=== PATIENT | female | born 1955 | race American Indian/Alaskan Native ===

== ENCOUNTER 2017-07-02 17:28 | Inpatient (IN) | payer OTHER ==
[2017-07-02 19:20] LABS: Hematocrit 39.1 % (30.3-42.9); Hemoglobin 12.6 gm/dl (10.1-14.3); Mean Corpuscular HGB Conc 32 % (30-34); Mean Corpuscular Hemoglobin 28 pg (28-32); Mean Corpuscular Volume 87 fl (79-97); Platelet Count 295 K/mm3 (140-440); Red Cell Distribution Width 13.9 % (13.2-15.2); White Blood Count 8.5 K/mm3 (4.5-11.0)
[2017-07-02 19:24] LABS: BUN/Creatinine Ratio 8.57; Calcium 9.1 mg/dL (8.4-10.2); Chloride 96.6 mmol/L (98-107); Potassium 3.2 mmol/L (3.6-5.0)
[2017-07-02] MEDS ORDERED: ATIVAN IV ONE (20:30)
[2017-07-02] MEDS ORDERED: NACL 0.9% 500 ML 500 ML IV ONE (20:30)
--- NOTE | 2017-07-02 20:32 | Emergency Department Report ---
ED General Adult HPI - General Chief complaint: Weakness Stated complaint: SICKLE CELL Time Seen by Provider: 07/02/17 20:13 Source: patient, family, EMS (ems notes not available at time of chart dictation), RN notes reviewed Mode of arrival: Stretcher Limitations: Other (patient very anxious, patient is a poor historian) - History of Present Illness Initial comments: This is a 62-year-old female. She is previously unknown to me. Past medical history includes diabetes, hypertension, anxiety. The patient is quite anxious , and has difficulty giving a cogent history. As per patient, she passed out prior to arrival. Prior to passing out, patient denied sudden severe thunderclap headache, neck pain. Afterwards, she can wait of chest pain, right medial leg pain, weakness, dizziness, generalized weakness. The chest pain as central, it does not radiate to the back, arms or neck. Patient denies vomiting , denies diaphoresis. As per triage nurse documentation, the patient was hypotensive, patient started gabapentin today. The patient cannot describe exacerbating or relieving factors. -: Gradual Location: back, right, lower extremity Radiation: extremity (right lower cavity pain radiates distally, patient and family endorse a history of radicular pain) Consistency: intermittent Improves with: none Worsens with: none Associated Symptoms: chest pain, headaches, loss of appetite, malaise, syncope, weakness - Related Data Home Medications Medication Instructions Recorded Confirmed Last Taken Benazepril/Hydrochlorothiazide 1 tab PO QAM 07/02/17 07/02/17 Unknown [Benazepril-Hctz 20-25 mg] Furosemide [Lasix TAB] 80 mg PO QAM 07/02/17 07/02/17 Unknown Gabapentin [Neurontin] 600 mg PO TID 07/02/17 07/02/17 Unknown Metoprolol [Lopressor TAB] 25 mg PO BID 07/02/17 07/02/17 Unknown Potassium Chloride [Klor-Con 10] 20 meq PO QDAY 07/02/17 07/02/17 Unknown Rosuvastatin Calcium [Rosuvastatin 20 mg PO QHS 07/02/17 07/02/17 Unknown Calcium] Sodium Bicarbonate [Sodium 650 mg PO QDAY 07/02/17 07/02/17 Unknown Bicarbonate] Allergies Allergy/AdvReac Type Severity Reaction Status Date / Time No Known Allergies Allergy Verified 07/02/17 23:57 ED Review of Systems ROS: Stated complaint: SICKLE CELL Other details as noted in HPI Constitutional: malaise, weakness Eyes: denies: vision change ENT: denies: epistaxis Respiratory: see HPI Cardiovascular: chest pain, syncope Gastrointestinal: denies: abdominal pain Genitourinary: denies: dysuria Musculoskeletal: back pain, arthralgia, myalgia Skin: denies: lesions Neurological: headache, weakness, confusion Psychiatric: anxiety ED Past Medical Hx - Past Medical History Previous Medical History?: Yes Hx Hypertension: Yes Hx Diabetes: Yes - Social History Smoking Status: Never Smoker Substance Use Type: None - Medications Home Medications: Home Medications Medication Instructions Recorded Confirmed Last Taken Type Benazepril/Hydrochlorothiazide 1 tab PO QAM 07/02/17 07/02/17 Unknown History [Benazepril-Hctz 20-25 mg] Furosemide [Lasix TAB] 80 mg PO QAM 07/02/17 07/02/17 Unknown History Gabapentin [Neurontin] 600 mg PO TID 07/02/17 07/02/17 Unknown History Metoprolol [Lopressor TAB] 25 mg PO BID 07/02/17 07/02/17 Unknown History Potassium Chloride [Klor-Con 10] 20 meq PO QDAY 07/02/17 07/02/17 Unknown History Rosuvastatin Calcium [Rosuvastatin 20 mg PO QHS 07/02/17 07/02/17 Unknown History Calcium] Sodium Bicarbonate [Sodium 650 mg PO QDAY 07/02/17 07/02/17 Unknown History Bicarbonate] ED Physical Exam - General Limitations: Other (patient is very anxious.) General appearance: alert, anxious, obese - Head Head exam: Present: atraumatic, normocephalic - Eye Eye exam: Present: normal appearance, PERRL, EOMI. Absent: nystagmus - ENT ENT exam: Present: normal exam, normal orophraynx, mucous membranes moist, normal external ear exam - Neck Neck exam: Present: normal inspection, full ROM. Absent: tenderness, meningismus - Respiratory Respiratory exam: Present: normal lung sounds bilaterally. Absent: respiratory distress, wheezes, rales, rhonchi, stridor, chest wall tenderness, accessory muscle use, decreased breath sounds, prolonged expiratory - Cardiovascular Cardiovascular Exam: Present: regular rate, normal rhythm, normal heart sounds. Absent: bradycardia, tachycardia, irregular rhythm, systolic murmur, diastolic murmur, rubs, gallop - GI/Abdominal GI/Abdominal exam: Present: soft, normal bowel sounds. Absent: distended, tenderness, guarding, rebound, rigid, pulsatile mass - Extremities Exam Extremities exam: Present: normal inspection, full ROM, normal capillary refill , other (the right medial thigh is nontender, without evidence of erythema, pus streaking, or crepitus. During this exam, I am escorted by nurse Almita Muir) . Absent: pedal edema, joint swelling, calf tenderness - Back Exam Back exam: Present: normal inspection, full ROM. Absent: tenderness, CVA tenderness (R), CVA tenderness (L), muscle spasm, paraspinal tenderness - Neurological Exam Neurological exam: Present: alert (patient is alert to name, location, and month.), other (there is no facial droop. The tongue is midline. Extraocular movements are intact bilaterally. Facial sensation is intact to light touch in the bilateral V1, V2, V3 distribution. The patient has 5 out of 5 strength in the bilateral upper extremities, and she is able to lift the bilateral lower extremities against gravity. Sensation is intact to light touch in 4 extremities) - Psychiatric Psychiatric exam: Present: anxious - Skin Skin exam: Present: warm, dry, intact, normal color. Absent: rash ED Course Vital Signs 07/02/17 07/02/17 07/02/17 17:29 17:30 17:45 Pulse Rate 65 65 66 Respiratory 18 15 19 Rate Blood Pressure 134/71 127/72 Blood Pressure [Right] O2 Sat by Pulse 99 98 100 Oximetry 07/02/17 07/02/17 07/02/17 18:01 18:15 18:30 Pulse Rate 68 67 66 Respiratory 15 15 13 Rate Blood Pressure 127/72 128/75 129/72 Blood Pressure [Right] O2 Sat by Pulse 98 100 100 Oximetry 07/02/17 07/02/17 07/02/17 18:45 19:01 19:15 Pulse Rate 68 66 69 Respiratory 16 20 24 Rate Blood Pressure 129/72 137/107 137/107 Blood Pressure [Right] O2 Sat by Pulse 100 98 99 Oximetry 07/02/17 07/02/17 07/02/17 19:31 19:45 20:01 Pulse Rate 68 Respiratory 14 21 14 Rate Blood Pressure 137/107 137/107 187/131 Blood Pressure [Right] O2 Sat by Pulse 99 97 99 Oximetry 07/02/17 07/02/17 07/02/17 20:15 20:31 20:45 Pulse Rate 70 Respiratory 13 18 13 Rate Blood Pressure 187/131 187/131 157/100 Blood Pressure [Right] O2 Sat by Pulse 99 94 Oximetry 07/02/17 07/02/17 07/02/17 21:00 21:40 21:45 Pulse Rate 68 67 67 Respiratory 18 12 14 Rate Blood Pressure 152/95 146/92 143/87 Blood Pressure [Right] O2 Sat by Pulse 96 96 96 Oximetry 07/02/17 07/02/17 07/02/17 22:00 22:15 22:31 Pulse Rate 66 Respiratory 14 Rate Blood Pressure 151/84 149/81 146/79 Blood Pressure [Right] O2 Sat by Pulse 97 96 99 Oximetry 07/02/17 07/02/17 07/02/17 22:45 22:57 23:00 Pulse Rate 63 71 71 Respiratory 20 14 12 Rate Blood Pressure 136/69 136/69 145/70 Blood Pressure [Right] O2 Sat by Pulse 94 98 98 Oximetry 07/02/17 07/02/17 07/03/17 23:03 23:30 00:00 Pulse Rate 78 71 69 Respiratory 11 L 13 Rate Blood Pressure 157/99 158/93 Blood Pressure [Right] O2 Sat by Pulse 97 97 Oximetry 07/03/17 07/03/17 00:31 01:15 Pulse Rate 79 69 Respiratory 20 18 Rate Blood Pressure 167/102 Blood Pressure 158/93 [Right] O2 Sat by Pulse 92 97 Oximetry - EJ/Peripheral Line Neck R Time Out Performed: Yes Indications: multiple IV sites needed Skin Cleansed in Sterile Fashion: Yes Size: 18 Dressing Placed: Tegaderm Patient Tolerated Procedure: well ED Medical Decision Making - Lab Data Result diagrams: 07/02/17 18:46 07/02/17 18:46 Vital Signs 07/02/17 07/02/17 07/02/17 17:29 17:30 17:45 Pulse Rate 65 65 66 Respiratory 18 15 19 Rate Blood Pressure 134/71 127/72 O2 Sat by Pulse 99 98 100 Oximetry 07/02/17 07/02/17 07/02/17 18:01 18:15 18:30 Pulse Rate 68 67 66 Respiratory 15 15 13 Rate Blood Pressure 127/72 128/75 129/72 O2 Sat by Pulse 98 100 100 Oximetry 07/02/17 07/02/17 07/02/17 18:45 19:01 19:15 Pulse Rate 68 66 69 Respiratory 16 20 24 Rate Blood Pressure 129/72 137/107 137/107 O2 Sat by Pulse 100 98 99 Oximetry 07/02/17 07/02/17 07/02/17 19:31 19:45 20:01 Pulse Rate 68 Respiratory 14 21 14 Rate Blood Pressure 137/107 137/107 187/131 O2 Sat by Pulse 99 97 99 Oximetry 07/02/17 07/02/17 07/02/17 20:15 20:31 20:45 Pulse Rate 70 Respiratory 13 18 13 Rate Blood Pressure 187/131 187/131 157/100 O2 Sat by Pulse 99 94 Oximetry 07/02/17 07/02/17 07/02/17 21:00 21:40 21:45 Pulse Rate 68 67 67 Respiratory 18 12 14 Rate Blood Pressure 152/95 146/92 143/87 O2 Sat by Pulse 96 96 96 Oximetry 07/02/17 07/02/17 07/02/17 22:00 22:15 22:31 Pulse Rate 66 Respiratory 14 Rate Blood Pressure 151/84 149/81 146/79 O2 Sat by Pulse 97 96 99 Oximetry 07/02/17 07/02/17 22:45 23:03 Pulse Rate 63 78 Respiratory 20 Rate Blood Pressure 136/69 O2 Sat by Pulse 94 Oximetry Labs 07/02/17 07/02/17 07/02/17 18:46 18:46 21:49 WBC 8.5 RBC 4.50 Hgb 12.6 Hct 39.1 MCV 87 MCH 28 MCHC 32 RDW 13.9 Plt Count 295 PT 13.6 INR 0.99 APTT 21.3 L D-Dimer 170.59 Sodium 141 Potassium 3.2 L Chloride 96.6 L Carbon Dioxide 26 Anion Gap 22 BUN 12 Creatinine 1.4 H Estimated GFR 46 BUN/Creatinine Ratio 8.57 Glucose 140 H Calcium 9.1 Magnesium Total Creatine Kinase Troponin T 07/02/17 21:49 WBC RBC Hgb Hct MCV MCH MCHC RDW Plt Count PT INR APTT D-Dimer Sodium Potassium Chloride Carbon Dioxide Anion Gap BUN Creatinine Estimated GFR BUN/Creatinine Ratio Glucose Calcium Magnesium 1.70 Total Creatine Kinase 42 Troponin T < 0.010 - EKG Data -: EKG Interpreted by Me - EKG Data 07/02/17 23:17 EKG #1 demonstrates normal sinus, 65 bpm, first-degree AV block, left axis deviation, left anterior fascicular block, poor R wave progression, abnormal EKG , there is no prior for comparison. EKG #2 was unchanged. Not morphologically consistent with sytemi - Radiology Data Radiology results: report reviewed, image reviewed Noncontrast CT scan of the brain is negative. Noncontrast CT scan of the cervical spine is negative. Chest x-ray is negative. - Medical Decision Making Differential diagnosis: Arrhythmia, structural cardiac disease, transient ischemic attack, seizure, pulmonary revenue cycle analyst, anxiety, conversion disorder, orthostasis, dehydration, medication side effect Assessment and plan: 62-year-old female with syncope, resolved hypotension, chest pain, abnormal EKG. Moderate risk by heart score, not suitable for outpatient acute coronary syndrome or stratification, troponins negative, d- dimer negative, low risk by well's criteria, noncontrast CT scan of the brain is negative, has chronic radiculopathy, patient given Ativan for anxiety. The case is presented to the Hospital physician, Dr. Singleton, she accepts the patient to her service. Critical care attestation.: If time is entered above; I have spent that time in minutes in the direct care of this critically ill patient, excluding procedure time. ED Disposition Clinical Impression: Syncope, Renal insufficiency, Chest pain Disposition: OP ADMIT IP TO THIS HOSP Is pt being admited?: Yes Does the pt Need Aspirin: Yes Condition: Good
--- NOTE | 2017-07-02 22:08 | Cat Scan Report ---
FINAL REPORT EXAM: CT HEAD/BRAIN WO CON HISTORY: syncope weakness TECHNIQUE: CT head without contrast PRIORS: None. FINDINGS: No acute intra-axial or extra-axial hemorrhage is identified. There is no evidence of midline shift or mass effect. The ventricles and sulci are within normal limits. Kennedy-white matter differentiation is intact. No acute parenchymal abnormalities seen. There are patchy and confluent hypodensities within the supratentorial white matter. Bony calvarium is grossly intact. Visualized portions of the mastoids and paranasal sinuses are unremarkable. IMPRESSION: Chronic small vessel white matter ischemic change
--- NOTE | 2017-07-02 22:23 | Cat Scan Report ---
FINAL REPORT EXAM: CT CERVICAL SPINE WO CON HISTORY: syncope weakness TECHNIQUE: CT cervical spine with reconstructions PRIORS: None. FINDINGS: Vertebral bodies demonstrate normal height and alignment. The disk spaces are within normal limits. The facet joints demonstrate normal alignment. The spinous processes are intact. Craniocervical junction is unremarkable. C1 and C2 are intact. IMPRESSION: Negative CT cervical spine. No acute abnormality seen.
[2017-07-02 22:27] LABS: INR 0.99 (0.87-1.13); Partial Thromboplastin Time 21.3 Sec. (24.2-36.6)
[2017-07-02 22:33] LABS: Creatine Kinase 42 units/L (30-135)
[2017-07-02] MEDS ORDERED: BABY ASPIRIN PO ONE (23:24)
--- NOTE | 2017-07-02 23:55 | History and Physical Report ---
History of Present Illness Date of examination: 07/02/17 History of present illness: 62-year-old woman history of hypertension, diabetes comes emergency room complaining of syncopal episode after getting out of her car. This lasted for less than a minute. Also complaining of chest pain in the epigastric area which she described as a pulling sensation, intermittent every minute, intensity 4 / 10, no radiation, she cannot identify exacerbating or relieving factors. She admits to nausea vomiting, no shortness of breath diaphoresis or palpitation but did admit to feeling dizzy Review Of Systems: Constitutional: no fever, chills, weight loss Ears, eyes, nose, mouth and throat: no nasal congestion, no nasal discharge, no sinus pressure, blurry vision, diplopia Neck: No neck pain or rigidity. Cardiovascular: chest pain, orthopnea, palpitations Respiratory: No shortness of breath, cough Gastrointestinal: abdominal pain, hematochezia Genitourinary : no dysuria, frequency , hematuria Musculoskeletal: no joint swelling or muscle ache Integumentary: no rash, no pruritis Neurological: no parathesias, focal weakness Endocrine: no cold or heat intolerance, no polyuria or polydipsia Hematologic/Lymphatic: no easy bruising, no easy bleeding, no gland swelling Allergic/Immunologic: no urticaria, no angioedema. PAST MEDICAL HISTORY:hypertension, diabetes PAST SURGICAL HISTORY: None FAMILY HISTORY: Hypertension SOCIAL HISTORY: Denies alcohol, tobacco, drugs Medications and Allergies Allergies Allergy/AdvReac Type Severity Reaction Status Date / Time No Known Allergies Allergy Verified 07/02/17 23:57 Home Medications Medication Instructions Recorded Confirmed Last Taken Type ALPRAZolam [Xanax TAB] 0.25 mg PO BID PRN #30 tab 07/04/17 Unknown Rx Furosemide [Lasix TAB] 40 mg PO QAM #30 tablet 07/04/17 Unknown Rx Gabapentin [Neurontin] 600 mg PO TID #30 tablet 07/04/17 Unknown Rx Lisinopril [Zestril TAB] 20 mg PO QDAY #30 tablet 07/04/17 Unknown Rx Metoprolol [Lopressor TAB] 25 mg PO BID #60 tablet 07/04/17 Unknown Rx Potassium Chloride [Klor-Con 10] 20 meq PO QDAY #30 tablet.er 07/04/17 Unknown Rx Rosuvastatin Calcium 20 mg PO QHS #30 tablet 07/04/17 Unknown Rx Exam - Physical Exam Narrative exam: Gen. appearance: Patient lying in bed, no apparent distress HEENT: Normocephalic, atraumatic, pupils equally round and reactive to light, extraocular movement intact, and no sclericterus,. No JVD or thyromegaly or nodule,neck supple, no carotid bruit ,mucous membranes moist, no exudate or erythema Heart: S1, S2, regular rate and rhythm Lungs: Clear to auscultation bilaterally, breathing comfortable Abdomen: Positive bowel sounds, nontender, nondistended, no organomegaly Extremity: No edema, cyanosis, clubbing Skin: No rash, nodules, warm, dry Neuro: Oriented 3, cranial nerves II-12 intact, speech is fluent, motor and sensory intact - Constitutional Vitals: Temp Pulse Resp BP Pulse Ox 78 20 136/69 94 07/02/17 23:03 07/02/17 22:45 07/02/17 22:45 07/02/17 22:45 Results - Labs CBC & Chem 7: 07/04/17 04:48 07/04/17 04:48 Labs: Abnormal lab results 07/02/17 07/02/17 Range/Units 18:46 21:49 APTT 21.3 L (24.2-36.6) Sec. Potassium 3.2 L (3.6-5.0) mmol/L Chloride 96.6 L (98-107) mmol/L Creatinine 1.4 H (0.7-1.2) mg/dL Glucose 140 H (65-100) mg/dL - Imaging and Cardiology EKG: image reviewed Chest x-ray: image reviewed CT Scan - head: report reviewed Assessment and Plan CT cervical spine reviewed Assessment Syncopal episode Chest pain Hypertension Diabetes Plan Admit to medicine Check cardiac enzymes, stress tests Check fingersticks and initiate insulin sliding scale Start aspirin, DVT prophylaxis Continue appropriate outpatient medication
[2017-07-03] MEDS ORDERED: MILK OF MAGNESIA PO PRN (00:39)
[2017-07-03] MEDS ORDERED: DULCOLAX PR PRN (00:39)
[2017-07-03] MEDS ORDERED: TYLENOL PO PRN (00:39)
[2017-07-03] MEDS ORDERED: ZOFRAN IV PRN (00:39)
[2017-07-03] MEDS ORDERED: D50W (25GM) Syringe IV PRN (01:07)
[2017-07-03] MEDS ORDERED: BABY ASPIRIN ONE (01:10)
[2017-07-03 01:46] LABS: Creatine Kinase 48 units/L (30-135)
[2017-07-03 01:52] LABS: Creatine Kinase MB < 1.0 ng/mL (0.0-4.0)
[2017-07-03] MEDS: PERCOCET 5/325 PO PRN ×5 (02:52→21:40)
[2017-07-03 06:38] LABS: Creatine Kinase MB < 1.0 ng/mL (0.0-4.0)
[2017-07-03 06:50] LABS: Creatine Kinase 46 units/L (30-135)
--- NOTE | 2017-07-03 07:41 | XRay Report ---
AP CHEST: HISTORY: chest pain AP view of the chest demonstrates a normal mediastinal and cardiac contour with clear lungs and normal bony and soft tissue structures. IMPRESSION: Unremarkable AP chest.
[2017-07-03] MEDS: NOVOLOG SUB-Q SCH ×4 (08:35→22:00)
[2017-07-03] MEDS ORDERED: APRESOLINE IV PRN (08:57)
[2017-07-03] MEDS: HCTZ PO SCH (09:26)
[2017-07-03] MEDS: LOVENOX SUB-Q SCH (09:26)
[2017-07-03] MEDS: ZESTRIL PO SCH (09:28)
[2017-07-03] MEDS ORDERED: LOVENOX SUB-Q SCH (10:00)
[2017-07-03] MEDS ORDERED: LEXISCAN IV ONE ×2 (11:06→11:08)
[2017-07-03] MEDS ORDERED: Fluarix Quad 2017-2018(36 MOS+) IM ONE (12:00)
[2017-07-03] MEDS ORDERED: PNEUMOVAX 23 IM ONE (12:00)
--- NOTE | 2017-07-03 14:46 | Progress Note ---
Assessment and Plan Assessment and plan: 62-year-old woman history of hypertension, diabetes comes emergency room complaining of syncopal episode after getting out of her car. This lasted for less than a minute. Also complaining of chest pain in the epigastric area which she described as a pulling sensation, intermittent every minute, intensity 4 / 10, no radiation, she cannot identify exacerbating or relieving factors. She admits to nausea vomiting, no shortness of breath diaphoresis or palpitation but did admit to feeling dizzy. she also has a mirade of problems, from nasuea with vomiting, non specific sick feeling to emotional outburst for no known reason and ?depression, leg pain and hand sensation abnormality Syncopal episode likely vasovagal * Continue supportive care. Atypical Chest pain possible GERD * Stress test negative. Echo pending. start on PPI Depression * Psych eval PER Pt request Hypertension * Controlled continue home meds Thigh pain. * Check d.dimer, if elevated will obtain U/S to r/o dvt Diabetes Mellitus uncontrolled with Neuropathy * Adjust insulin therapy, monitor accucheck AC/HS DVT/GI prophy Plan of care discussed with the patient in detail. Anticipate discharge in AM. History Interval history: Patient seen and examined. reports feeling sad and often crying into the middle of the night without any known reason to her. also reports "feeling sick" with episode of vomiting, no bloody, prior to passing out and also sensation of left thigh pain going on for 2 months, and sensation of neuropathy in both hands. Hospitalist Physical - Physical exam Narrative exam: Gen. appearance: Patient lying in bed, no apparent distress HEENT: Normocephalic, atraumatic, pupils equally round and reactive to light, extraocular movement intact, and no sclericterus,. No JVD or thyromegaly or nodule,neck supple, no carotid bruit ,mucous membranes moist, no exudate or erythema Heart: S1, S2, regular rate and rhythm Lungs: Clear to auscultation bilaterally, breathing comfortable Abdomen: Positive bowel sounds, nontender, nondistended, no organomegaly Extremity: No edema, cyanosis, clubbing Skin: No rash, nodules, warm, dry Neuro: Oriented 3, cranial nerves II-12 intact, speech is fluent, motor and sensory intact - Constitutional Vitals: Temp Pulse Resp BP Pulse Ox 97.8 F 85 18 162/84 97 07/03/17 06:30 07/03/17 11:33 07/03/17 13:29 07/03/17 11:33 07/03/17 07:56 Results - Labs CBC & Chem 7: 07/02/17 18:46 08 18:46 Labs: Laboratory Last Values WBC 8.5 K/mm3 (4.5-11.0) 07/02/17 18:46 RBC 4.50 M/mm3 (3.65-5.03) 07/02/17 18:46 Hgb 12.6 gm/dl (10.1-14.3) 07/02/17 18:46 Hct 39.1 % (30.3-42.9) 07/02/17 18:46 MCV 87 fl (79-97) 07/02/17 18:46 MCH 28 pg (28-32) 07/02/17 18:46 MCHC 32 % (30-34) 07/02/17 18:46 RDW 13.9 % (13.2-15.2) 07/02/17 18:46 Plt Count 295 K/mm3 (140-440) 07/02/17 18:46 PT 13.6 Sec. (12.2-14.9) 07/02/17 21:49 INR 0.99 (0.87-1.13) 07/02/17 21:49 APTT 21.3 Sec. (24.2-36.6) L 07/02/17 21:49 D-Dimer 170.59 ng/mlDDU (0-234) 07/02/17 21:49 Sodium 141 mmol/L (137-145) 07/02/17 18:46 Potassium 3.2 mmol/L (3.6-5.0) L 07/02/17 18:46 Chloride 96.6 mmol/L (98-107) L 07/02/17 18:46 Carbon Dioxide 26 mmol/L (22-30) 07/02/17 18:46 Anion Gap 22 mmol/L 07/02/17 18:46 BUN 12 mg/dL (7-17) 07/02/17 18:46 Creatinine 1.4 mg/dL (0.7-1.2) H 07/02/17 18:46 Estimated GFR 46 ml/min 07/02/17 18:46 BUN/Creatinine Ratio 8.57 % 07/02/17 18:46 Glucose 140 mg/dL (65-100) H 07/02/17 18:46 Calcium 9.1 mg/dL (8.4-10.2) 07/02/17 18:46 Magnesium 1.70 mg/dL (1.7-2.3) 07/02/17 21:49 Total Creatine Kinase 46 units/L (30-135) 07/03/17 05:55 CK-MB (CK-2) < 1.0 ng/mL (0.0-4.0) 07/03/17 05:55 CK-MB (CK-2) Rel Index 2.1 (0-4) 07/03/17 05:55 Troponin T < 0.010 ng/mL (0.00-0.029) 07/03/17 05:55 - Imaging and Cardiology Chest x-ray: image reviewed (negative) CT Scan - head: image reviewed (chronic white matter ischemic changes)
[2017-07-03] MEDS ORDERED: XANAX PO PRN (19:43)
[2017-07-03] MEDS ORDERED: ROXICODONE PO ONE (20:00)
[2017-07-03] MEDS: NEURONTIN PO SCH (21:39)
[2017-07-03] MEDS: LOPRESSOR PO SCH (21:39)
[2017-07-03] MEDS: ZOFRAN IV PRN (23:20)
--- NOTE | 2017-07-04 01:05 | Treadmill Report ---
MYOCARDIAL PERFUSION IMAGING STUDIES Resting myocardial perfusion images revealed homogeneous radioisotope uptake. There was also some gastric uptake. On post-Lexiscan images, again there was homogeneous radioisotope distribution throughout the myocardium. There is no transient ischemic dilatation. Gated scan revealed no motion abnormality. Ejection fraction was 67%. IMPRESSION: 1. This test is negative for ischemia. 2. Good left ventricular systolic function with ejection fraction of 67%. JOB# [id number]
[2017-07-04] MEDS: PERCOCET 5/325 PO PRN ×3 (05:22→17:22)
[2017-07-04] MEDS: NEURONTIN PO SCH ×2 (05:22→17:17)
[2017-07-04 06:33] LABS: Basophils % (Auto) 0.5 % (0.0-1.8); Hematocrit 34.8 % (30.3-42.9); Hemoglobin 11.4 gm/dl (10.1-14.3); Mean Corpuscular HGB Conc 33 % (30-34); Mean Corpuscular Hemoglobin 28 pg (28-32); Mean Corpuscular Volume 86 fl (79-97); Platelet Count 293 K/mm3 (140-440); Red Blood Count 4.04 M/mm3 (3.65-5.03); White Blood Count 6.1 K/mm3 (4.5-11.0)
[2017-07-04 06:51] LABS: BUN/Creatinine Ratio 9.33; Calcium 8.3 mg/dL (8.4-10.2)
[2017-07-04 06:52] LABS: Chloride 98.2 mmol/L (98-107); Potassium 3.4 mmol/L (3.6-5.0)
--- NOTE | 2017-07-04 08:43 | Discharge Summary ---
Providers - Providers Date of Admission: 07/02/17 23:55 Attending physician: JUSTO COMER MD 07/03/17 18:14 Consult to Mental Health [CONS] Routine Reason For Exam: depression Place consult to:: mental health Notified:: NABEEL Phone number called:: [phone] Was contact made?: Yes Time called:: 08:26 Primary care physician: HADOOP ARCHITECT Hospitalization Reason for admission: SYNCOPE Condition: Stable Hospital course: 62-year-old woman history of hypertension, diabetes comes emergency room complaining of syncopal episode after getting out of her car. This lasted for less than a minute. Also complaining of chest pain in the epigastric area which she described as a pulling sensation, intermittent every minute, intensity 4 / 10, no radiation, she cannot identify exacerbating or relieving factors. She admits to nausea vomiting, no shortness of breath diaphoresis or palpitation but did admit to feeling dizzy. she also has a mirade of problems, from [place] with vomiting, non specific sick feeling to emotional outburst for no known reason and ?depression, leg pain and hand sensation abnormality Syncopal episode likely vasovagal * NO EVIDENCE OF AORTIC STENOSIS ON ECHO Atypical Chest pain possible GERD * Stress test negative. * D-dimer is negative Depression * OUTPATIENT PSYCH EVAL Hypertension * Controlled continue home meds Thigh pain. * supportive care. follow with [facility] she is [facility] with Diabetes Mellitus uncontrolled with Neuropathy * Better controlled recommended to continue with gabapentin. Monitor blood glucose level, yearly Eye and podiatry exams. Diastolic Heart failure on Echo: * Educated on findings. No clinical symptoms at this time, Recommended close follow up with PCP Disposition: DC-01 TO HOME OR SELFCARE Time spent for discharge: 35 MINS Core Measure Documentation - Palliative Care Palliative Care/ Comfort Measures: Not Applicable - Core Measures Any of the following diagnoses?: none - VTE Discharge Requirements Deep Vein Thrombosis/Pulmonary Embolism Present on Admission: No - Heart Failure Discharge Requirements RAVINDER/ARB for LVSD if EF <40%: Yes Beta remington at discharge: Yes Exam - Physical Exam Narrative exam: Gen. appearance: Patient lying in bed, no apparent distress HEENT: Normocephalic, atraumatic, pupils equally round and reactive to light, extraocular movement intact, and no sclericterus,. No JVD or thyromegaly or nodule,neck supple, no carotid bruit ,mucous membranes moist, no exudate or erythema Heart: S1, S2, regular rate and rhythm Lungs: Clear to auscultation bilaterally, breathing comfortable Abdomen: Positive bowel sounds, nontender, nondistended, no organomegaly Extremity: No edema, cyanosis, clubbing Skin: No rash, nodules, warm, dry Neuro: Oriented 3, cranial nerves II-12 intact, speech is fluent, motor and sensory intact - Constitutional Vitals: Temp Pulse Resp BP Pulse Ox 98.0 F 67 20 108/59 100 07/04/17 04:42 07/04/17 04:42 07/04/17 06:22 07/04/17 04:42 07/04/17 00:08 Plan Activity: advance as tolerated, fall precautions Diet: low fat, low salt, diabetic Special Instructions: record daily BP diary, record blood sugar diary Follow up with: PRIMARY CARE, [Primary Care Provider] - 3-5 Days LOLA MARION MD [Staff Physician] - 7 Days Prescriptions: Rosuvastatin Calcium 20 mg PO QHS #30 tablet ALPRAZolam [Xanax TAB] 0.25 mg PO BID PRN #30 tab PRN Reason: Anxiety Furosemide [Lasix TAB] 40 mg PO QAM #30 tablet Gabapentin [Neurontin] 600 mg PO TID #30 tablet Lisinopril [Zestril TAB] 20 mg PO QDAY #30 tablet Metoprolol [Lopressor TAB] 25 mg PO BID #60 tablet Potassium Chloride [Klor-Con 10] 20 meq PO QDAY #30 tablet.er
[2017-07-04] MEDS: LOVENOX SUB-Q SCH (09:47)
[2017-07-04] MEDS: HCTZ PO SCH (09:47)
[2017-07-04] MEDS: LOPRESSOR PO SCH (09:47)
[2017-07-04] MEDS: NOVOLOG SUB-Q SCH ×3 (09:47→16:30)
[2017-07-04] MEDS: ZESTRIL PO SCH (09:48)
[2017-07-04] MEDS: ZOFRAN IV PRN (09:59)
--- NOTE | 2017-07-04 16:02 | Consultation ---
History of Present Illness - Reason for Consult Consult date: 07/04/17 Reason for consult: Mental Health Evaluation Requesting physician: JUSTO COMER - Chief Complaint Chief complaint: "I feel worthless sometimes" - History of Present Psychiatric Illness 62 y.o. BF presenting to [facility] for for syncopal episodes. Psychiatry was consulted to see patient for possible depression. Today patient is cooperative, but emotional during the assessment. She stated being very emotional lately along with feeling sorry for herself because she cannot get around like she used to in the past. She stated having issues with her legs and experiencing falls lately. Also, the patient is from her spouse. She stated these stressors has caused her to feel sad, hopeless, and helpless the past 3 months. She stated that she has a daughter who can help her out around her house. She stated that she did not want to bother her daughter, because she has her own life to manage. She denies SI/HI's and AVH's. She rate her depression 6/10, with 10 being the worse. She denies a sleep disturbances and a poor appetite. She denies recreational drug use and alcohol consumption (etoh). Patient is willing to seek therapy once discharged from the hospital. Medications and Allergies Allergies Allergy/AdvReac Type Severity Reaction Status Date / Time No Known Allergies Allergy Verified 07/02/17 23:57 Home Medications Medication Instructions Recorded Confirmed Last Taken Type ALPRAZolam [Xanax TAB] 0.25 mg PO BID PRN #30 tab 07/04/17 Unknown Rx Furosemide [Lasix TAB] 40 mg PO QAM #30 tablet 07/04/17 Unknown Rx Gabapentin [Neurontin] 600 mg PO TID #30 tablet 07/04/17 Unknown Rx Lisinopril [Zestril TAB] 20 mg PO QDAY #30 tablet 07/04/17 Unknown Rx Metoprolol [Lopressor TAB] 25 mg PO BID #60 tablet 07/04/17 Unknown Rx Potassium Chloride [Klor-Con 10] 20 meq PO QDAY #30 tablet.er 07/04/17 Unknown Rx Rosuvastatin Calcium 20 mg PO QHS #30 tablet 07/04/17 Unknown Rx Active Meds: Active Medications Acetaminophen (Tylenol) 650 mg PO Q4H PRN PRN Reason: Pain MILD(1-3)/Fever >100.5/MAGAÑA Alprazolam (Xanax) 1 mg PO Q8H PRN PRN Reason: Anxiety Last Admin: 07/03/17 21:39 Dose: 1 mg Bisacodyl (Dulcolax) 10 mg NV QDAY PRN PRN Reason: Constipation unrelieved by MOM Dextrose (D50w (25gm)) 50 ml IV PRN PRN PRN Reason: Hypoglycemia Enoxaparin Sodium (Lovenox) 40 mg SUB-Q QDAY@1000 [facility] Last Admin: 07/04/17 09:47 Dose: 40 mg Gabapentin (Neurontin) 600 mg PO Q8HR [facility] Last Admin: 07/04/17 05:22 Dose: 600 mg Hydralazine HCl (Apresoline) 10 mg IV Q6H PRN PRN Reason: Blood Pressure Last Admin: 07/03/17 16:16 Dose: 10 mg Hydrochlorothiazide (Hctz) 25 mg PO QDAY [facility] Last Admin: 07/04/17 09:47 Dose: Not Given Insulin Aspart (Novolog) 0 units SUB-Q ACHS [facility] PRN Reason: Protocol Last Admin: 07/04/17 13:09 Dose: Not Given Lisinopril (Zestril) 20 mg PO QDAY [facility] Last Admin: 07/04/17 09:48 Dose: Not Given Magnesium Hydroxide (Milk Of Magnesia) 30 ml PO Q4H PRN PRN Reason: Constipation Metoprolol Tartrate (Lopressor) 25 mg PO BID [facility] Last Admin: 07/04/17 09:47 Dose: Not Given Ondansetron HCl (Zofran) 4 mg IV Q4H PRN PRN Reason: N/V unrelieved by Reglan Last Admin: 07/04/17 09:59 Dose: 4 mg Oxycodone/Acetaminophen (Percocet 5/325) 1 tab PO Q4H PRN PRN Reason: Pain, Moderate (4-6) Last Admin: 07/04/17 09:59 Dose: 1 tab Past psychiatric history - Past Medical History Past Medical History: diabetes, hypertension Past Surgical History: No surgical history - past Psychiatric treatment and history psychiatric treatment history: Denies a psy hx. Denies a fam psy hx. - Social History Social history: Lives alone Mental Status Exam - Vital signs Last Vital Signs Temp 98.0 F 07/04/17 04:42 Pulse 90 07/04/17 10:00 Resp 20 07/04/17 10:59 BP 108/60 07/04/17 09:48 Pulse Ox 99 07/04/17 10:00 - Exam Narrative exam: ROS: (+) depression MSE: Appearance: cooperative, emotional Behavior: regular eye contact Speech: regular rate and tone Mood: "okay now" Affect: congruent to mood Thought Process: linear Thought Content: denies SI/HI's and AVH's Motor Activity: ambulatory Cognition: A/Ox 3 Insight: fair Judgment: fair Results Result Diagrams: 07/04/17 04:48 07/04/17 04:48 Abnormal lab results 07/03/17 07/03/17 07/03/17 Range/Units 07:56 16:36 21:30 [place] % (Auto) (0.0-7.3) % Potassium (3.6-5.0) mmol/L Creatinine (0.7-1.2) mg/dL Glucose (65-100) mg/dL POC Glucose 166 H 305 H 281 H (70-105) Calcium (8.4-10.2) mg/dL 07/04/17 07/04/17 07/04/17 Range/Units 04:48 04:48 08:53 [place] % (Auto) 10.5 H (0.0-7.3) % Potassium 3.4 L (3.6-5.0) mmol/L Creatinine 1.5 H (0.7-1.2) mg/dL Glucose 243 H (65-100) mg/dL POC Glucose 303 H (70-105) Calcium 8.3 L (8.4-10.2) mg/dL 07/04/17 Range/Units 11:28 [place] % (Auto) (0.0-7.3) % Potassium (3.6-5.0) mmol/L Creatinine (0.7-1.2) mg/dL Glucose (65-100) mg/dL POC Glucose 308 H (70-105) Calcium (8.4-10.2) mg/dL All other labs normal. Assessment and Plan Assessment and plan: Impression: MDD moderate type. Today patient is cooperative, but emotional during the assessment. Patient denies SI's. DDx: R/O Bipolar Recommendation/Plan: Start Prozac 20 mg PO Daily for depression. Patient can follow-up outpatient psy services at [facility]. Discussed possible suicidality/medication induced jesus with patient reference Gigi. Patient is willing to requested assistance from her daughter when indicated.
[2017-07-04 17:56] VITALS: BP 146/80
[2017-07-04] MEDS ORDERED: PROzac PO SCH (18:00)
== END 2017-07-04 17:50 | disposition home or self-care (01) | DRG 312 ==
LOC: ED 17:28 → 4A 23:55
PROVIDERS: ADMIT Internal Medicine; ATTEND Internal Medicine
PROC: 3E0234Z Introduction of Serum, Toxoid and Vaccine into Muscle, Percutaneous Approach (ICD-10-PCS; principal; 2017-07-03)
DX: R55 Syncope and collapse (principal); I50.30 Unspecified diastolic (congestive) heart failure; K21.9 Gastro-esophageal reflux disease without esophagitis; E11.9 Type 2 diabetes mellitus without complications; F41.9 Anxiety disorder, unspecified; N28.9 Disorder of kidney and ureter, unspecified; F32.9 Major depressive disorder, single episode, unspecified; M79.659 Pain in unspecified thigh; E11.40 Type 2 diabetes mellitus with diabetic neuropathy, unspecified; I11.0 Hypertensive heart disease with heart failure; Z79.899 Other long term (current) drug therapy; Z23 Encounter for immunization
CPT/HCPCS: 36415; 70450; 71010; 72125; 78452; 80048; 82550; 82553; 82962; 83735; 84484; 85025; 85027; 85379; 85610; 85730; 90686; 90732; 93005; 93010; 93017; 93306; 96374; A9502; J0360; J1650; J1815; J2060; J2405; J2785; J7040

== ENCOUNTER 2017-10-19 08:26 | Emergency (ER) | payer SELFPAY ==
[2017-10-19 09:13] LABS: Hematocrit 37.1 % (30.3-42.9); Hemoglobin 12.3 gm/dl (10.1-14.3); Mean Corpuscular HGB Conc 33 % (30-34); Mean Corpuscular Hemoglobin 28 pg (28-32); Mean Corpuscular Volume 85 fl (79-97); Platelet Count 268 K/mm3 (140-440); Red Blood Count 4.36 M/mm3 (3.65-5.03); Red Cell Distribution Width 14.7 % (13.2-15.2); White Blood Count 4.9 K/mm3 (4.5-11.0)
[2017-10-19 09:23] LABS: INR 0.95 (0.87-1.13)
[2017-10-19 09:40] LABS: Partial Thromboplastin Time 26.8 Sec. (24.2-36.6)
[2017-10-19 09:47] LABS: Creatine Kinase MB 1.2 ng/mL (0.0-4.0)
[2017-10-19 09:49] LABS: Alanine Aminotransferase 8 units/L (7-56); Albumin 3.8 g/dL (3.9-5); Alkaline Phosphatase 65 units/L (35-129); Anion Gap 21 mmol/L; BUN/Creatinine Ratio 14; Bilirubin,Direct < 0.2 mg/dL (0-0.2); Blood Urea Nitrogen 11 mg/dL (7-17); Calcium 9.3 mg/dL (8.4-10.2); Carbon Dioxide 23 mmol/L (22-30); Chloride 98.8 mmol/L (98-107); Glucose 309 mg/dL (65-100); Potassium 3.6 mmol/L (3.6-5.0); Sodium 139 mmol/L (137-145); Total Protein 7.8 g/dL (6.3-8.2)
[2017-10-19 10:26] LABS: Basophils % (Manual) 0 % (0.0-1.8); Blastocytes % (Manual) 0 %
[2017-10-19 10:27] LABS: Diff Status Complete; Platelet Estimate Consistent w Auto; RBC Morphology Normal
[2017-10-19] MEDS ORDERED: CATAPRES PO ONE (10:30)
[2017-10-19] MEDS ORDERED: TORADOL IV ONE (10:40)
[2017-10-19] MEDS ORDERED: ZOFRAN IV ONE ×2 (10:40→14:04)
[2017-10-19] MEDS ORDERED: DILAUDID IV ONE ×2 (10:40→13:03)
--- NOTE | 2017-10-19 11:42 | XRay Report ---
RIGHT HIP, 2 views: History: Right hip pain. There is normal bone mineralization. Mild osteoarthritic changes are identified at the right hip. No evidence for fracture, dislocation or osteonecrosis. IMPRESSION: Mild osteoarthritis.
--- NOTE | 2017-10-19 11:49 | Emergency Department Report ---
ED Lower Extremity HPI - General Chief Complaint: Pain General Stated Complaint: PAIN ON RIGHT SIDE OF BODY Time Seen by Provider: 10/19/17 10:26 Source: patient, old records reviewed Mode of arrival: Wheelchair Limitations: Physical Limitation - History of Present Illness Initial Comments: 62-year-old female with a history of arthritis, hypertension, diabetes currently on insulin, and diabetic neuropathy presents complaining of right hip pain 1 year worsening for the last 2 days. Patient states she has history of significant arthritis to bilateral knees with [id number] contact. Patient also states she has had right hip pain 1 year but does not know the cause. Pain radiates to thigh. Pain is constant, aching with intermittent sharp component and severe in intensity. She states she is seen at the [facility] and they only prescribed gabapentin for her neuropathy pain. Patient states she needs something stronger to control her pain to her hip. Patient complaining of intermittent and midsternal chest pain that occurs when she tenses her body up during significant hip pain episodes. Pain is described as a pressure. Patient has had some mild nausea and vomited times one secondary to significant pain and mild shortness of breath reported. Last fall was 2 months ago and patient denies any more recent injury, fever, leg weakness, or urinary symptoms. Pt presents with elevated bp and sugar and states she has been compliant with her meds but did not take her meds this am. Previous medical record review. Patient was here July 02 until the for syncope. No evidence of aortic stenosis, atypical chest pain with GERD reported with a negative stress test and negative d-dimer. It is noted at that time patient complained of right thigh pain and has a diagnosis of neuropathy. Positive diastolic heart failure with echo. - Related Data Previous Rx's Medication Instructions Recorded Last Taken Type ALPRAZolam [Xanax TAB] 0.25 mg PO BID PRN #30 tab 07/04/17 Unknown Rx Furosemide [Lasix TAB] 40 mg PO QAM #30 tablet 07/04/17 Unknown Rx Gabapentin [Neurontin] 600 mg PO TID #30 tablet 07/04/17 Unknown Rx Lisinopril [Zestril TAB] 20 mg PO QDAY #30 tablet 07/04/17 Unknown Rx Metoprolol [Lopressor TAB] 25 mg PO BID #60 tablet 07/04/17 Unknown Rx Potassium Chloride [Klor-Con 10] 20 meq PO QDAY #30 tablet.er 07/04/17 Unknown Rx Rosuvastatin Calcium 20 mg PO QHS #30 tablet 07/04/17 Unknown Rx HYDROcodone/APAP 5-325 [[place] 1 each PO Q4HR PRN #20 tablet 10/19/17 Unknown Rx 5/325] Ibuprofen [Motrin] 800 mg PO Q8HR PRN #30 tablet 10/19/17 Unknown Rx Allergies Allergy/AdvReac Type Severity Reaction Status Date / Time No Known Allergies Allergy Verified 07/02/17 23:57 ED Review of Systems ROS: Stated complaint: PAIN ON RIGHT SIDE OF BODY Other details as noted in HPI Comment: All other systems reviewed and negative Other: Constitutional: No fevers chills Eyes: No eye pain visual changes ENT: No ear pain or throat pain Neck: Denies pain Respiratory: Denies cough wheezing shortness of breath Cardiovascular: Denies chest pain, palpitations, syncope GI: Denies abdominal pain, nausea, vomiting, diarrhea : urinary frequency Musculoskeletal: As per HPI Skin: Denies rash, lesions, erythema Neurologic: Denies headache, numbness, weakness Psychiatric: Denies suicidal ideation, hallucinations ED Past Medical Hx - Past Medical History Previous Medical History?: Yes Hx Hypertension: Yes Hx Diabetes: Yes Hx Arthritis: Yes - Surgical History Past Surgical History?: Yes Hx Appendectomy: Yes Additional Surgical History: Hernia around intestines - Social History Smoking Status: Never Smoker Substance Use Type: Prescribed - Medications Home Medications: Home Medications Medication Instructions Recorded Confirmed Last Taken Type ALPRAZolam [Xanax TAB] 0.25 mg PO BID PRN #30 tab 07/04/17 Unknown Rx Furosemide [Lasix TAB] 40 mg PO QAM #30 tablet 07/04/17 Unknown Rx Gabapentin [Neurontin] 600 mg PO TID #30 tablet 07/04/17 Unknown Rx Lisinopril [Zestril TAB] 20 mg PO QDAY #30 tablet 07/04/17 Unknown Rx Metoprolol [Lopressor TAB] 25 mg PO BID #60 tablet 07/04/17 Unknown Rx Potassium Chloride [Klor-Con 10] 20 meq PO QDAY #30 tablet.er 07/04/17 Unknown Rx Rosuvastatin Calcium 20 mg PO QHS #30 tablet 07/04/17 Unknown Rx HYDROcodone/APAP 5-325 [[place] 1 each PO Q4HR PRN #20 tablet 10/19/17 Unknown Rx 5/325] Ibuprofen [Motrin] 800 mg PO Q8HR PRN #30 tablet 10/19/17 Unknown Rx ED Physical Exam - General Limitations: Physical Limitation - Other Other exam information: General: No limitations, patient is alert in no acute distress Head exam: Atraumatic, normocephalic Eyes exam: Normal appearance ENT: Moist mucous membrane, normal oropharynx Neck exam: Normal inspection, full range of motion, no meningismus nontender Respiratory exam: Clear to auscultation bilateral, no wheezes, rales, crackles Cardiovascular: Normal rate and rhythm, normal heart sounds Abdomen: Soft, nondistended, and nontender, with normal bowel sounds, no rebound, or guarding Extremity: Full range of motion normal inspection no deformity. Mild tenderness to right hip, tenderness to thigh with palpation. Pain with movement of right hip. No pain to palpation to the knees but pain with movement. 2+ DP pulses equal bilaterally or erythema, warmth, or edema. no calf tenderness Back: Normal Inspection, full range of motion, no tenderness Neurologic: Alert, oriented x3, cranial nerves intact, no motor or sensory deficit Psychiatric: normal affect, normal mood Skin: Warm, dry, intact ED Course Vital Signs 10/19/17 10/19/17 10/19/17 08:36 09:26 09:28 Temperature 98.3 F 97.9 F Pulse Rate 94 H 86 85 Respiratory 20 12 16 Rate Blood Pressure 213/122 Blood Pressure 227/130 [Left] O2 Sat by Pulse 99 99 100 Oximetry 10/19/17 10/19/17 10/19/17 09:30 09:46 10:00 Temperature Pulse Rate 86 95 H Respiratory 15 18 Rate Blood Pressure 227/136 222/124 227/159 Blood Pressure [Left] O2 Sat by Pulse 99 100 100 Oximetry 10/19/17 10/19/17 10/19/17 10:30 11:12 11:30 Temperature Pulse Rate 87 87 87 Respiratory 14 13 11 L Rate Blood Pressure 217/126 217/126 217/126 Blood Pressure [Left] O2 Sat by Pulse 100 Oximetry 10/19/17 10/19/17 10/19/17 11:46 12:00 12:16 Temperature Pulse Rate 86 88 80 Respiratory 11 L 17 10 L Rate Blood Pressure 217/126 217/126 217/126 Blood Pressure [Left] O2 Sat by Pulse Oximetry 10/19/17 10/19/17 10/19/17 12:30 12:46 13:00 Temperature Pulse Rate 82 81 84 Respiratory 10 L 18 17 Rate Blood Pressure 217/126 217/126 217/126 Blood Pressure [Left] O2 Sat by Pulse Oximetry 10/19/17 10/19/17 13:16 13:30 Temperature Pulse Rate 82 83 Respiratory 10 L 15 Rate Blood Pressure 217/126 144/84 Blood Pressure [Left] O2 Sat by Pulse 87 Oximetry - Reevaluation(s) Reevaluation #1: 10/19/17 15:31 During ED stay patient received insulin, pain medication and nausea medication with improvement in symptoms. Clonidine 0.2 mg also given with improvement and reduction of blood pressure. ED Lower Extremity MDM - Lab Data Result diagrams: 10/19/17 09:00 10/19/17 09:00 Lab Results 10/19/17 10/19/17 10/19/17 Range/Units 09:00 09:00 09:00 WBC 4.9 (4.5-11.0) K/mm3 RBC 4.36 (3.65-5.03) M/mm3 Hgb 12.3 (10.1-14.3) gm/dl Hct 37.1 (30.3-42.9) % MCV 85 (79-97) fl MCH 28 (28-32) pg MCHC 33 (30-34) % RDW 14.7 (13.2-15.2) % Plt Count 268 (140-440) K/mm3 Add Manual Diff Complete Total Counted 100 Seg Neuts % (Manual) 42.0 (40.0-70.0) % Band Neutrophils % 0 % Lymphocytes % (Manual) 48.0 H (13.4-35.0) % Reactive Lymphs % (Man) 0 % Monocytes % (Manual) 8.0 H (0.0-7.3) % Eosinophils % (Manual) 2.0 (0.0-4.3) % Basophils % (Manual) 0 (0.0-1.8) % Metamyelocytes % 0 % Myelocytes % 0 % Promyelocytes % 0 % Blast Cells % 0 % Nucleated RBC % Not Reportable Seg Neutrophils # Man 2.1 (1.8-7.7) K/mm3 Band Neutrophils # 0.0 K/mm3 Lymphocytes # (Manual) 2.4 (1.2-5.4) K/mm3 Abs React Lymphs (Man) 0.0 K/mm3 Monocytes # (Manual) 0.4 (0.0-0.8) K/mm3 Eosinophils # (Manual) 0.1 (0.0-0.4) K/mm3 Basophils # (Manual) 0.0 (0.0-0.1) K/mm3 Metamyelocytes # 0.0 K/mm3 Myelocytes # 0.0 K/mm3 Promyelocytes # 0.0 K/mm3 Blast Cells # 0.0 K/mm3 WBC Morphology Not Reportable Hypersegmented Neuts Not Reportable Hyposegmented Neuts Not Reportable Hypogranular Neuts Not Reportable Smudge Cells Not Reportable Toxic Granulation Not Reportable Toxic Vacuolation Not Reportable Dohle Bodies Not Reportable Pelger-Huet Anomaly Not Reportable Grace Rods Not Reportable Platelet Estimate Consistent w auto Clumped Platelets Not Reportable Plt Clumps, EDTA Not Reportable Large Platelets Not Reportable Giant Platelets Not Reportable Platelet Satelliting Not Reportable Plt Morphology Comment Not Reportable RBC Morphology Normal Dimorphic RBCs Not Reportable Polychromasia Not Reportable Hypochromasia Not Reportable Poikilocytosis Not Reportable Anisocytosis Not Reportable Microcytosis Not Reportable Macrocytosis Not Reportable Spherocytes Not Reportable Pappenheimer Bodies Not Reportable Sickle Cells Not Reportable Target Cells Not Reportable Tear Drop Cells Not Reportable Ovalocytes Not Reportable Helmet Cells Not Reportable [place]ri[place]-Pastura Bodies Not Reportable Heaters Rings Not Reportable [place] Cells Not Reportable Bite Cells Not Reportable Crenated Cell Not Reportable Elliptocytes Not Reportable Acanthocytes (Spur) Not Reportable Rouleaux Not Reportable Hemoglobin C Crystals Not Reportable Schistocytes Not Reportable Malaria parasites Not Reportable Keo Bodies Not Reportable Hem Pathologist Commnt No PT 13.1 (12.2-14.9) Sec. INR 0.95 (0.87-1.13) APTT 26.8 (24.2-36.6) Sec. Sodium 139 (137-145) mmol/L Potassium 3.6 (3.6-5.0) mmol/L Chloride 98.8 (98-107) mmol/L Carbon Dioxide 23 (22-30) mmol/L Anion Gap 21 mmol/L BUN 11 (7-17) mg/dL Creatinine 0.8 (0.7-1.2) mg/dL Estimated GFR > 60 ml/min BUN/Creatinine Ratio 14 % Glucose 309 H (65-100) mg/dL POC Glucose (70-105) Calcium 9.3 (8.4-10.2) mg/dL Total Bilirubin 0.50 (0.1-1.2) mg/dL Direct Bilirubin < 0.2 (0-0.2) mg/dL AST 9 (5-40) units/L ALT 8 (7-56) units/L Alkaline Phosphatase 65 (35-129) units/L Total Creatine Kinase (30-135) units/L CK-MB (CK-2) (0.0-4.0) ng/mL CK-MB (CK-2) Rel Index (0-4) Troponin T < 0.010 (0.00-0.029) ng/mL NT-Pro-B Natriuret Pep (0-900) pg/mL Total Protein 7.8 (6.3-8.2) g/dL Albumin 3.8 L (3.9-5) g/dL Albumin/Globulin Ratio 1.0 % 10/19/17 10/19/17 10/19/17 Range/Units 09:00 09:00 10:27 WBC (4.5-11.0) K/mm3 RBC (3.65-5.03) M/mm3 Hgb (10.1-14.3) gm/dl Hct (30.3-42.9) % MCV (79-97) fl MCH (28-32) pg MCHC (30-34) % RDW (13.2-15.2) % Plt Count (140-440) K/mm3 Add Manual Diff Total Counted Seg Neuts % (Manual) (40.0-70.0) % Band Neutrophils % % Lymphocytes % (Manual) (13.4-35.0) % Reactive Lymphs % (Man) % Monocytes % (Manual) (0.0-7.3) % Eosinophils % (Manual) (0.0-4.3) % Basophils % (Manual) (0.0-1.8) % Metamyelocytes % % Myelocytes % % Promyelocytes % % Blast Cells % % Nucleated RBC % Seg Neutrophils # Man (1.8-7.7) K/mm3 Band Neutrophils # K/mm3 Lymphocytes # (Manual) (1.2-5.4) K/mm3 Abs React Lymphs (Man) K/mm3 Monocytes # (Manual) (0.0-0.8) K/mm3 Eosinophils # (Manual) (0.0-0.4) K/mm3 Basophils # (Manual) (0.0-0.1) K/mm3 Metamyelocytes # K/mm3 Myelocytes # K/mm3 Promyelocytes # K/mm3 Blast Cells # K/mm3 WBC Morphology Hypersegmented Neuts Hyposegmented Neuts Hypogranular Neuts Smudge Cells Toxic Granulation Toxic Vacuolation Dohle Bodies Pelger-Huet Anomaly Grace Rods Platelet Estimate Clumped Platelets Plt Clumps, EDTA Large Platelets Giant Platelets Platelet Satelliting Plt Morphology Comment RBC Morphology Dimorphic RBCs Polychromasia Hypochromasia Poikilocytosis Anisocytosis Microcytosis Macrocytosis Spherocytes Pappenheimer Bodies Sickle Cells Target Cells Tear Drop Cells Ovalocytes Helmet Cells Arrieta-Pastura Bodies Heaters Rings Wen Cells Bite Cells Crenated Cell Elliptocytes Acanthocytes (Spur) Rouleaux Hemoglobin C Crystals Schistocytes Malaria parasites Keo Bodies Hem Pathologist Commnt PT (12.2-14.9) Sec. INR (0.87-1.13) APTT (24.2-36.6) Sec. Sodium (137-145) mmol/L Potassium (3.6-5.0) mmol/L Chloride (98-107) mmol/L Carbon Dioxide (22-30) mmol/L Anion Gap mmol/L BUN (7-17) mg/dL Creatinine (0.7-1.2) mg/dL Estimated GFR ml/min BUN/Creatinine Ratio % Glucose (65-100) mg/dL POC Glucose 333 H (70-105) Calcium (8.4-10.2) mg/dL Total Bilirubin (0.1-1.2) mg/dL Direct Bilirubin (0-0.2) mg/dL AST (5-40) units/L ALT (7-56) units/L Alkaline Phosphatase (35-129) units/L Total Creatine Kinase 57 (30-135) units/L CK-MB (CK-2) 1.2 (0.0-4.0) ng/mL CK-MB (CK-2) Rel Index 2.1 (0-4) Troponin T (0.00-0.029) ng/mL NT-Pro-B Natriuret Pep 231.0 (0-900) pg/mL Total Protein (6.3-8.2) g/dL Albumin (3.9-5) g/dL Albumin/Globulin Ratio % 10/19/17 Range/Units 13:42 WBC (4.5-11.0) K/mm3 RBC (3.65-5.03) M/mm3 Hgb (10.1-14.3) gm/dl Hct (30.3-42.9) % MCV (79-97) fl MCH (28-32) pg MCHC (30-34) % RDW (13.2-15.2) % Plt Count (140-440) K/mm3 Add Manual Diff Total Counted Seg Neuts % (Manual) (40.0-70.0) % Band Neutrophils % % Lymphocytes % (Manual) (13.4-35.0) % Reactive Lymphs % (Man) % Monocytes % (Manual) (0.0-7.3) % Eosinophils % (Manual) (0.0-4.3) % Basophils % (Manual) (0.0-1.8) % Metamyelocytes % % Myelocytes % % Promyelocytes % % Blast Cells % % Nucleated RBC % Seg Neutrophils # Man (1.8-7.7) K/mm3 Band Neutrophils # K/mm3 Lymphocytes # (Manual) (1.2-5.4) K/mm3 Abs React Lymphs (Man) K/mm3 Monocytes # (Manual) (0.0-0.8) K/mm3 Eosinophils # (Manual) (0.0-0.4) K/mm3 Basophils # (Manual) (0.0-0.1) K/mm3 Metamyelocytes # K/mm3 Myelocytes # K/mm3 Promyelocytes # K/mm3 Blast Cells # K/mm3 WBC Morphology Hypersegmented Neuts Hyposegmented Neuts Hypogranular Neuts Smudge Cells Toxic Granulation Toxic Vacuolation Dohle Bodies Pelger-Huet Anomaly Grace Rods Platelet Estimate Clumped Platelets Plt Clumps, EDTA Large Platelets Giant Platelets Platelet Satelliting Plt Morphology Comment RBC Morphology Dimorphic RBCs Polychromasia Hypochromasia Poikilocytosis Anisocytosis Microcytosis Macrocytosis Spherocytes Pappenheimer Bodies Sickle Cells Target Cells Tear Drop Cells Ovalocytes Helmet Cells Arrieta-Pastura Bodies Heaters Rings [place] Cells Bite Cells Crenated Cell Elliptocytes Acanthocytes (Spur) Rouleaux Hemoglobin C Crystals Schistocytes Malaria parasites Keo Bodies Hem Pathologist Commnt PT (12.2-14.9) Sec. INR (0.87-1.13) APTT (24.2-36.6) Sec. Sodium (137-145) mmol/L Potassium (3.6-5.0) mmol/L Chloride (98-107) mmol/L Carbon Dioxide (22-30) mmol/L Anion Gap mmol/L BUN (7-17) mg/dL Creatinine (0.7-1.2) mg/dL Estimated GFR ml/min BUN/Creatinine Ratio % Glucose (65-100) mg/dL POC Glucose 255 H (70-105) Calcium (8.4-10.2) mg/dL Total Bilirubin (0.1-1.2) mg/dL Direct Bilirubin (0-0.2) mg/dL AST (5-40) units/L ALT (7-56) units/L Alkaline Phosphatase (35-129) units/L Total Creatine Kinase (30-135) units/L CK-MB (CK-2) (0.0-4.0) ng/mL CK-MB (CK-2) Rel Index (0-4) Troponin T (0.00-0.029) ng/mL NT-Pro-B Natriuret Pep (0-900) pg/mL Total Protein (6.3-8.2) g/dL Albumin (3.9-5) g/dL Albumin/Globulin Ratio % - Radiology Data Radiology results: report reviewed Right hip x-ray: Mild osteoarthritis - Medical Decision Making Plan to discharge patient home with pain medication and for acutely worsening chronic hip pain. X-ray significant for arthritis. BP and sugar elevation likely related to not taking her medication dose this morning and improved with treatment. No signs of hypertensive emergency or DKA at this time. Patient will be discharged home on symptomatic - Differential Diagnosis fracture, contusion, sprain, infection, hypertensive emergency Critical Care Time: No Critical care attestation.: If time is entered above; I have spent that time in minutes in the direct care of this critically ill patient, excluding procedure time. ED Disposition Clinical Impression: Arthritis of right hip, Diabetes, HTN (hypertension) Disposition: TO HOME OR SELFCARE Is pt being admited?: No Does the pt Need Aspirin: No Condition: Stable Instructions: Diabetes Mellitus Type 2 in Adults (ED), Hypertension (ED), Osteoarthritis (ED) Additional Instructions: Take the medication as prescribed. Return if symptoms worsen. Follow-up with your doctor and orthopedic doctor provided Prescriptions: HYDROcodone/APAP 5-325 [[place] 5/325] 1 each PO Q4HR PRN #20 tablet PRN Reason: Pain Ibuprofen [Motrin] 800 mg PO Q8HR PRN #30 tablet PRN Reason: Pain Referrals: PRIMARY CARE, [Primary Care Provider] - 3-5 Days GADIEL RUTHERFORD MD [Staff Physician] - 3-5 Days (Orthopedic doctor) Time of Disposition: 15:40
[2017-10-19 13:41] VITALS: BP 144/84
[2017-10-19] MEDS ORDERED: ZOFRAN ONE (14:06)
== END 2017-10-19 16:15 | disposition home or self-care (01) ==
LOC: ED 08:26
DX: I10 Essential (primary) hypertension (principal); M16.11 Unilateral primary osteoarthritis, right hip; E11.9 Type 2 diabetes mellitus without complications
CPT/HCPCS: 36415; 71010; 73502; 80048; 80074; 82550; 82553; 82962; 83880; 84484; 85007; 85025; 85610; 85730; 93005; 93010; 96374; 96375; 96376; 99284; J1170; J1885; J2405; J1815

== ENCOUNTER 2020-04-01 14:10 | Emergency (ER) | payer MEDICARE ==
[2020-04-01] MEDS ORDERED: SODIUM CHLORIDE 0.9% 1000 ML 1,000 ML IV ONE ×2 (14:45→16:37)
[2020-04-01] MEDS ORDERED: KETOROLAC 30 MG/1 ML INJ IV ONE (14:45)
--- NOTE | 2020-04-01 14:45 | Emergency Department Report ---
ED General Adult HPI - General Chief complaint: Weakness Stated complaint: WEAKNESS Time Seen by Provider: 04/01/20 14:38 Source: patient, EMS Mode of arrival: Stretcher Limitations: No Limitations - History of Present Illness Initial comments: Patient is a 65-year-old F [place] female who is presenting with generalized weakness. Patient states she is been so fatigued that she is having difficulty standing today. Patient feels very tired as well. Patient states that symptoms started approximately 2 to 3 days ago with several episodes of diarrhea. This is now resolved patient does have a mild cough productive of clear sputum. States she has some reproducible left chest discomfort. States that her right hip which she has chronic pain has been bothering her more and she is now walking with a limp. She denies any recent trauma. Patient states she has had no fevers chills neck stiffness sore throat at this time. Severity scale (0 -10): 8 - Related Data Previous Rx's Medication Instructions Recorded Last Taken Type ALPRAZolam [Xanax TAB] 0.25 mg PO BID PRN #30 tab 07/04/17 Unknown Rx Furosemide [Lasix TAB] 40 mg PO QAM #30 tablet 07/04/17 Unknown Rx Gabapentin [Neurontin] 600 mg PO TID #30 tablet 07/04/17 Unknown Rx Metoprolol [Lopressor TAB] 25 mg PO BID #60 tablet 07/04/17 Unknown Rx Potassium Chloride [Klor-Con 10] 20 meq PO QDAY #30 tablet.er 07/04/17 Unknown Rx Rosuvastatin Calcium 20 mg PO QHS #30 tablet 07/04/17 Unknown Rx lisinopriL [Zestril TAB] 20 mg PO QDAY #30 tablet 07/04/17 Unknown Rx HYDROcodone/APAP 5-325 [[place] 1 each PO Q4HR PRN #20 tablet 10/19/17 Unknown Rx 5/325] Ibuprofen [Motrin] 800 mg PO Q8HR PRN #30 tablet 10/19/17 Unknown Rx traMADoL [Ultram] 50 mg PO Q6HR PRN #7 tablet 10/27/18 Unknown Rx Albuterol INH(or & Nicu Only) 2 puff IH QID PRN #1 inhalation 04/01/20 Unknown Rx [ProAir HFA Inhaler] Benzonatate [Tessalon Perles] 100 mg PO Q8HR #10 capsule 04/01/20 Unknown Rx Allergies Allergy/AdvReac Type Severity Reaction Status Date / Time No Known Allergies Allergy Verified 07/02/17 23:57 ED Review of Systems ROS: Stated complaint: WEAKNESS Other details as noted in HPI ED Past Medical Hx - Past Medical History Previous Medical History?: Yes Hx Hypertension: Yes Hx CVA: Yes Hx Diabetes: Yes Hx Arthritis: Yes - Surgical History Hx Appendectomy: Yes Additional Surgical History: Hernia around intestines - Social History Smoking Status: Never Smoker Substance Use Type: None, Marijuana - Medications Home Medications: Home Medications Medication Instructions Recorded Confirmed Last Taken Type ALPRAZolam [Xanax TAB] 0.25 mg PO BID PRN #30 tab 07/04/17 Unknown Rx Furosemide [Lasix TAB] 40 mg PO QAM #30 tablet 07/04/17 Unknown Rx Gabapentin [Neurontin] 600 mg PO TID #30 tablet 07/04/17 Unknown Rx Metoprolol [Lopressor TAB] 25 mg PO BID #60 tablet 07/04/17 Unknown Rx Potassium Chloride [Klor-Con 10] 20 meq PO QDAY #30 tablet.er 07/04/17 Unknown Rx Rosuvastatin Calcium 20 mg PO QHS #30 tablet 07/04/17 Unknown Rx lisinopriL [Zestril TAB] 20 mg PO QDAY #30 tablet 07/04/17 Unknown Rx HYDROcodone/APAP 5-325 [[place] 1 each PO Q4HR PRN #20 tablet 10/19/17 Unknown Rx 5/325] Ibuprofen [Motrin] 800 mg PO Q8HR PRN #30 tablet 10/19/17 Unknown Rx traMADoL [Ultram] 50 mg PO Q6HR PRN #7 tablet 10/27/18 Unknown Rx Albuterol INH(or & Nicu Only) 2 puff IH QID PRN #1 inhalation 04/01/20 Unknown Rx [ProAir HFA Inhaler] Benzonatate [Tessalon Perles] 100 mg PO Q8HR #10 capsule 04/01/20 Unknown Rx ED Physical Exam - General Limitations: No Limitations ED Course Vital Signs 04/01/20 04/01/20 04/01/20 14:21 14:30 14:41 Temperature 98.9 F 98.9 F Pulse Rate 61 63 60 Respiratory 14 19 18 Rate Blood Pressure 151/80 143/77 Blood Pressure 143/77 [Left] O2 Sat by Pulse 98 99 100 Oximetry 04/01/20 04/01/20 04/01/20 14:43 16:00 16:30 Temperature Pulse Rate 70 69 Respiratory 16 17 15 Rate Blood Pressure 172/87 156/87 Blood Pressure [Left] O2 Sat by Pulse 99 99 99 Oximetry 04/01/20 17:30 Temperature Pulse Rate 74 Respiratory 22 Rate Blood Pressure 156/93 Blood Pressure [Left] O2 Sat by Pulse 98 Oximetry ED Medical Decision Making - Lab Data Result diagrams: 04/01/20 15:28 04/01/20 15:28 - Radiology Data Ordering Physician: CÉSAR CROWDER MD Date of Service: 04/01/20 Procedure(s): XR chest 1V ap Accession Number(s): [id number] cc: CÉSAR CROWDER MD Fluoro Time In Minutes: CHEST 1 VIEW INDICATION / CLINICAL INFORMATION: productive cough. COMPARISON: Chest radiograph 10/19/2017 FINDINGS: SUPPORT DEVICES: None. HEART / MEDIASTINUM: No significant abnormality. LUNGS / PLEURA: No significant pulmonary or pleural abnormality. Unchanged, focal linear opacity at the periphery of the left middle lung zone likely represents chronic scarring or atelectasis.. No pneumothorax. Moderately advanced osteoarthrosis of the shoulders. IMPRESSION: No acute finding. No significant change. Signer Name: Ja Singh MD Signed: 04/01/2020 3:12 PM Workstation Name[id number] [address] [address] XRay Report Signed Patient: JOSSUE AKERS MR#: [id number] : 1955 Acct:[id number] Age/Sex: 65 / F ADM Date: 04/01/20 Loc: ED Attending Dr: Ordering Physician: CÉSAR CROWDER MD Date of Service: 04/01/20 Procedure(s): XR hip 1V RT Accession Number(s): [id number] cc: CÉSAR CROWDER MD Fluoro Time In Minutes: RIGHT HIP 1 VIEW(S) INDICATION / CLINICAL INFORMATION: Acute on chronic pain COMPARISON: Right hip radiograph 10/19/2017 FINDINGS: Single frontal projection image of the right hip shows no acute finding or significant change from 10/19/2017. Mild osteoarthrosis. No evident fracture or malalignment in frontal projection. No abnormal gas or embedded foreign body in the visible soft tissues. Signer Name: Ja Singh MD Signed: 04/01/2020 3:10 PM Workstation Name: [id number] - Medical Decision Making Patient is a 65-year-old F [place] female who states she is very fatigued and has a mild cough. She had some diarrhea several days ago. Patient does show some mild dehydration as her sodium is decreased from normal. Patient was hydrated here in emergency department. Chest x-ray was within normal limits does not show any acute infiltrate however I did tell the patient that she still could have a very mild case of COVID-19 and encouraged her to get outpatient testing and isolate herself from others. Patient's potassium level was slightly elevated however entry level lab technician stated that the sample did have some discoloration consistent with hemolysis. Patient's renal function is within normal limits and this was not treated. Patient is stable for discharge home will have follow-up with her primary care physicians. Critical care attestation.: If time is entered above; I have spent that time in minutes in the direct care of this critically ill patient, excluding procedure time. ED Disposition Clinical Impression: Mild dehydration, Upper respiratory infection, Suspected COVID-19 virus in fection, Hyponatremia Disposition: DC-01 TO HOME OR SELFCARE Is pt being admited?: No Does the pt Need Aspirin: No Condition: Stable Instructions: Viral Syndrome (ED), Dehydration (ED) Additional Instructions: Please follow-up with your primary care physician or [facility]. Please also attempt to get outpatient COVID-19 testing. Referrals: ROBERT BARCLAY MD [Primary Care Provider] - 3-5 Days Time of Disposition: 18:40
--- NOTE | 2020-04-01 15:15 | XRay Report ---
RIGHT HIP 1 VIEW(S) INDICATION / CLINICAL INFORMATION: Acute on chronic pain COMPARISON: Right hip radiograph 10/19/2017 FINDINGS: Single frontal projection image of the right hip shows no acute finding or significant mukherjee ge from 10/19/2017. Mild osteoarthrosis. No evident fracture or malalignment in frontal projection. N o abnormal gas or embedded foreign body in the visible soft tissues. Signer Name: Ja Singh MD Signed: 04/01/2020 3:10 PM Workstation Name: [id number]
--- NOTE | 2020-04-01 15:16 | XRay Report ---
CHEST 1 VIEW INDICATION / CLINICAL INFORMATION: productive cough. COMPARISON: Chest radiograph 10/19/2017 FINDINGS: SUPPORT DEVICES: None. HEART / MEDIASTINUM: No significant abnormality. LUNGS / PLEURA: No significant pulmonary or pleural abnormality. Unchanged, focal linear opacity at t he periphery of the left middle lung zone likely represents chronic scarring or atelectasis.. No pneu mothorax. Moderately advanced osteoarthrosis of the shoulders. IMPRESSION: No acute finding. No significant change. Signer Name: Ja Singh MD Signed: 04/01/2020 3:12 PM Workstation Name: [id number]
[2020-04-01 16:01] LABS: Hematocrit 34.7 % (30.3-42.9); Hemoglobin 11.1 gm/dl (10.1-14.3); Mean Corpuscular HGB Conc 32 % (30-34); Mean Corpuscular Volume 87 fl (79-97); Red Blood Count 3.96 M/mm3 (3.65-5.03); Red Cell Distribution Width 14.6 % (13.2-15.2)
[2020-04-01 16:02] LABS: Platelet Count 314 K/mm3 (140-440)
[2020-04-01 16:32] LABS: BUN/Creatinine Ratio 16; Blood Urea Nitrogen 18 mg/dL (7-17); Calcium 8.6 mg/dL (8.4-10.2); Hemolysis Index 138
[2020-04-01] MEDS ORDERED: traMADol 50 MG TAB PO ONE (18:01)
[2020-04-01 19:35] VITALS: BP 158/99
== END 2020-04-01 19:38 | disposition home or self-care (01) ==
LOC: ED 14:10
DX: E86.0 Dehydration (principal); J06.9 Acute upper respiratory infection, unspecified; E87.1 Hypo-osmolality and hyponatremia; I10 Essential (primary) hypertension; E11.9 Type 2 diabetes mellitus without complications; M19.90 Unspecified osteoarthritis, unspecified site; F12.90 Cannabis use, unspecified, uncomplicated; Z86.73 Personal history of transient ischemic attack (TIA), and cerebral infarction without residual deficits; Z79.899 Other long term (current) drug therapy; Z20.828 Contact with and (suspected) exposure to other viral communicable diseases
CPT/HCPCS: 36415; 71045; 73501; 80048; 85025; 96361; 96374; 99284; J1885; J7030

== ENCOUNTER 2020-12-25 11:42 | Emergency (ER) | payer MEDICARE ==
[2020-12-25] MEDS ORDERED: LACTATED RINGERS 1,000 ML IV ONE (11:55)
[2020-12-25] MEDS ORDERED: ONDANSETRON 4 MG/2 ML INJ IV ONE (11:55)
[2020-12-25] MEDS ORDERED: ACETAMINOPHEN 325 MG/10.15 ML ORAL LIQD UNIT DOSE PO ONE (11:56)
--- NOTE | 2020-12-25 11:57 | Emergency Department Report ---
ED General Adult HPI - General Chief complaint: Weakness Stated complaint: FLU LIKE SYMPTOMS Time Seen by Provider: 12/25/20 11:54 Source: patient, EMS (Verbal report received from emergency medical services. EMS documentation not available at time of chart dictation ), RN notes reviewed, old records reviewed Mode of arrival: Stretcher Limitations: Physical Limitation - History of Present Illness Initial comments: The patient was evaluated in the emergency department for symptoms described in the history of present illness. He/she was evaluated in the context of the global COVID-19 pandemic, which necessitated consideration that the patient migh t be at risk for infection with the virus that causes COVID-19. Institutional protocols and algorithms that pertain to the evaluation of patients at risk for COVID-19 are in a state of rapid change based on information released by regulatory bodies including the CDC and federal and state organizations. These policies and algorithms were followed during the patient's care in the emergency department. Please note that these policies, procedures and recommendations changed on a rapid basis. This is a 65-year-old female. She has a history of hypertension, stroke, history of resolved renal insufficiency. She has a distant history of orthopedic surgical repair on her left lower extremity. She is brought to the hospital by emergency medical services today with a complaint of left lower seven drant pain, nausea, vomiting and diarrhea. This started within the past few days. She reports multiple episodes of nonbloody, nonbilious emesis. She reports a few episodes of watery nonbloody diarrhea. No complaint of headache, neck pain, chest pain. Positive chronic cough. No new or different shortness of breath. Chronic loss of taste and smell. No dysuria. Patient states that she lives at home "with another person", and reports that she has a home nurse helping her out 5 hours a day, 5 days a week. She believes that she gets her prescription medications from a local pharmacy, but cannot recall the names of these prescriptions. She also reports no recent antibiotic use. -: Gradual, days(s) Location: abdomen Radiation: non-radiation Quality: aching Consistency: intermittent Improves with: none Worsens with: none - Related Data Previous Rx's Medication Instructions Recorded Last Taken Type Potassium Chloride [Klor-Con 10] 20 meq PO QDAY #30 tablet.er 07/04/17 04/02/20 Rx Rosuvastatin Calcium 20 mg PO QHS #30 tablet 07/04/17 04/01/20 Rx Benzonatate [Tessalon Perles] 100 mg PO Q8HR #10 capsule 04/01/20 04/02/20 Rx traMADoL [Ultram] 50 mg PO Q6HR PRN #12 tablet 04/01/20 04/02/20 Rx Albuterol Mdi (or & Nicu Only) 2 puff IH QID PRN #1 inhalation 04/05/20 Unknown Rx [ProAir HFA Inhaler] Aspirin EC [Halfprin EC] 81 mg PO QDAY #100 tablet.dr 04/05/20 Unknown Rx Cefuroxime Axetil [Ceftin] 250 mg PO Q12H #10 ml 04/05/20 Unknown Rx Escitalopram [Lexapro] 10 mg PO QDAY #30 oral.liqd 04/05/20 Unknown Rx Glimepiride [Amaryl] 1 mg PO QAM #30 tablet 04/05/20 Unknown Rx Metoprolol [Lopressor TAB] 25 mg PO BID #60 tablet 04/05/20 Unknown Rx lisinopriL [Zestril TAB] 20 mg PO QDAY #30 tablet 04/05/20 Unknown Rx traMADoL [Ultram 50 MG tab] 50 mg PO Q6HR PRN #12 tablet 04/06/20 Unknown Rx Allergies Allergy/AdvReac Type Severity Reaction Status Date / Time No Known Allergies Allergy Verified 12/25/20 12:03 ED Review of Systems ROS: Stated complaint: FLU LIKE SYMPTOMS Other details as noted in HPI Constitutional: malaise, weakness. denies: fever Eyes: denies: eye discharge ENT: denies: epistaxis Respiratory: cough Cardiovascular: denies: chest pain Gastrointestinal: abdominal pain, nausea, vomiting, diarrhea Genitourinary: denies: dysuria Musculoskeletal: myalgia Neurological: weakness (Chronic) ED Past Medical Hx - Past Medical History Hx Hypertension: Yes Hx CVA: Yes (x 2 (right side weakness)) Hx Diabetes: Yes Hx Deep Vein Thrombosis: No Hx Arthritis: Yes - Surgical History Hx Pacemaker: No Hx Internal Defibrillator: No Hx Appendectomy: Yes Additional Surgical History: Hernia around intestines - Social History Smoking Status: Never Smoker - Medications Home Medications: Home Medications Medication Instructions Recorded Confirmed Last Taken Type Potassium Chloride [Klor-Con 10] 20 meq PO QDAY #30 tablet.er 07/04/17 04/03/20 04/02/20 Rx Rosuvastatin Calcium 20 mg PO QHS #30 tablet 07/04/17 04/03/20 04/01/20 Rx Benzonatate [Tessalon Perles] 100 mg PO Q8HR #10 capsule 04/01/20 04/03/20 04/02/20 Rx traMADoL [Ultram] 50 mg PO Q6HR PRN #12 tablet 04/01/20 04/03/20 04/02/20 Rx Albuterol Mdi (or & Nicu Only) 2 puff IH QID PRN #1 inhalation 04/05/20 Unknown Rx [ProAir HFA Inhaler] Aspirin EC [Halfprin EC] 81 mg PO QDAY #100 tablet. 04/05/20 Unknown Rx Cefuroxime Axetil [Ceftin] 250 mg PO Q12H #10 ml 04/05/20 Unknown Rx Escitalopram [Lexapro] 10 mg PO QDAY #30 oral.liqd 04/05/20 Unknown Rx Glimepiride [Amaryl] 1 mg PO QAM #30 tablet 04/05/20 Unknown Rx Metoprolol [Lopressor TAB] 25 mg PO BID #60 tablet 04/05/20 Unknown Rx lisinopriL [Zestril TAB] 20 mg PO QDAY #30 tablet 04/05/20 Unknown Rx traMADoL [Ultram 50 MG tab] 50 mg PO Q6HR PRN #12 tablet 04/06/20 Unknown Rx ED Physical Exam - General Limitations: Physical Limitation General appearance: alert, anxious, in distress, obese - Head Head exam: Present: atraumatic, normocephalic - Eye Eye exam: Present: normal appearance, EOMI. Absent: nystagmus - ENT ENT exam: Present: normal exam, normal orophraynx, mucous membranes moist, normal external ear exam - Neck Neck exam: Present: normal inspection, full ROM. Absent: tenderness, meningismus - Respiratory Respiratory exam: Present: decreased breath sounds. Absent: respiratory distress, wheezes, rales, rhonchi, stridor - Cardiovascular Cardiovascular Exam: Present: regular rate, normal rhythm, normal heart sounds. Absent: bradycardia, tachycardia, irregular rhythm, systolic murmur, diastolic murmur, rubs, gallop - GI/Abdominal GI/Abdominal exam: Present: soft, normal bowel sounds. Absent: distended, tend erness, guarding, rebound, rigid, pulsatile mass - Rectal Rectal exam: Present: normal inspection, other (Chaperoned by nurse Ander Yung) - Extremities Exam Extremities exam: Present: normal inspection (Well-healed surgical site noted in the left proximal femur, and left patella. No redness, pus or streaking.), ped al edema (1+ edema in the bilateral lower extremities), other (2+ pulses noted in the bilateral upper and lower extremities. There is no palpable cord. negative Homans sign. Muscular compartments are soft. The pelvis is stable.). Absent: tenderness, calf tenderness - Back Exam Back exam: Present: normal inspection. Absent: tenderness, CVA tenderness (R), CVA tenderness (L), paraspinal tenderness, vertebral tenderness - Neurological Exam Neurological exam: Present: alert, other (There is no facial droop. The tongue is midline. The extraocular movements are intact bilaterally. There is chronic weakness, the patient moves 4 extremities spontaneously, and sensation is intact to light touch in 4 extremities.) - Psychiatric Psychiatric exam: Present: anxious - Skin Skin exam: Present: warm, dry, intact, normal color. Absent: rash ED Course Vital Signs 12/25/20 12/25/20 12/25/20 11:55 13:30 13:53 Temperature 99 F 99.2 F Pulse Rate 99 H Respiratory 16 Rate Blood Pressure 213/112 O2 Sat by Pulse 100 97 Oximetry 12/25/20 12/25/20 12/25/20 14:00 14:10 14:30 Temperature Pulse Rate Respiratory 18 Rate Blood Pressure 195/99 199/102 O2 Sat by Pulse 98 99 Oximetry 12/25/20 12/25/20 12/25/20 15:00 15:24 15:30 Temperature Pulse Rate Respiratory Rate Blood Pressure 208/104 208/104 208/104 O2 Sat by Pulse 98 97 97 Oximetry 12/25/20 12/25/20 15:45 16:00 Temperature Pulse Rate Respiratory Rate Blood Pressure 188/89 195/99 O2 Sat by Pulse 96 99 Oximetry - Reevaluation(s) Reevaluation #1: 12/25/20 13:09 Differential diagnosis, including not limited to: Colitis, diverticulitis, enteritis, pneumonia, urinary tract infection, obstruction, perforation, chronic hypertension Assessment and plan: 65-year-old female with complaint of left lower quadrant pain, nausea, vomiting and diarrhea, unable to tolerate oral feeds at this time. Low-grade temperature, likely secondary to febrile illness, rectal temperature pending, fairly hypertensive, likely secondary to not being able to tolerate medications by mouth, and a component of pain/anxiety. Establish IV access, obtain rectal temperature, urinalysis, EKG, x-ray of the chest, nursing team to reconcile medications, obtain CT scan of the abdomen pelvis, and reassess. Please note that patient has already experienced a delay in her care, as she is a very difficult IV stick, phlebotomy still has not been able to obtain her laboratory studies, nursing team has requested the assistance of the IV nurse. Reevaluation #2: 12/25/20 16:44 Patient has been reevaluated multiple times while here in this department. Neither myself, nor the nursing team have witnessed any active nausea, vomiting or diarrhea. CT scan of the abdomen pelvis shows no acute surgical pathology. Urinalysis suggest pyuria. CT scan findings in the bladder likely secondary to patient's catheterization while here in the emergency room. We will treat the patient with her typical oral antihypertensives, and initiate Macrobid therapy. Patient has been observed in this ER for hours without clinical decompensation. Patient is suitable for trial of outpatient management, assuming she does not have any further active vomiting. Hemoglobin, hematocrit similar to prior. Patient denies hematemesis of bright red blood per rectum. Blood urea nitrogen not especially elevated. Explained significance of patient's findings of patient Patient suitable for trial of outpatient management at this time. 12/25/20 16:49 - EJ/Peripheral Line Neck L Time Out Performed: Yes Indications: nurses unable to establis Skin Cleansed in Sterile Fashion: Yes Size: 20 Dressing Placed: Tegaderm Patient Tolerated Procedure: well ED Medical Decision Making - Lab Data Result diagrams: 12/25/20 13:00 12/25/20 12:42 Vital Signs 12/25/20 11:55 Temperature 99 F Pulse Rate 99 H Respiratory 16 Rate Blood Pressure 213/112 O2 Sat by Pulse 100 Oximetry Lab Results 12/25/20 12/25/20 12/25/20 Range/Units 12:42 12:42 13:00 WBC 10.3 (4.5-11.0) K/mm3 RBC 3.20 L (3.65-5.03) M/mm3 Hgb 9.5 L (10.1-14.3) gm/dl Hct 29.2 L (30.3-42.9) % MCV 91 (79-97) fl MCH 30 (28-32) pg MCHC 33 (30-34) % RDW 16.1 H (13.2-15.2) % Plt Count 340 (140-440) K/mm3 PT 13.1 (12.2-14.9) Sec. INR 1.01 (0.87-1.13) Sodium 138 (137-145) mmol/L Potassium 4.1 (3.6-5.0) mmol/L Chloride 102.6 (98-107) mmol/L Carbon Dioxide 21 L (22-30) mmol/L Anion Gap 19 mmol/L BUN 7 (7-17) mg/dL Creatinine 0.7 (0.6-1.2) mg/dL Estimated GFR > 60 ml/min BUN/Creatinine Ratio 10 % Glucose 131 H (65-100) mg/dL Calcium 8.4 (8.4-10.2) mg/dL Magnesium 1.70 (1.7-2.3) mg/dL Total Bilirubin 0.40 (0.1-1.2) mg/dL AST 22 (5-40) units/L ALT 6 L (7-56) units/L Alkaline Phosphatase 107 (35-129) units/L Total Creatine Kinase 108 (30-135) units/L Total Protein 7.0 (6.3-8.2) g/dL Albumin 3.4 L (3.9-5) g/dL Albumin/Globulin Ratio 0.9 % Urine Color (Yellow) Urine Turbidity (Clear) Urine pH (5.0-7.0) Ur Specific [place] (1.003-1.030) Urine Protein (Negative) mg/dL Urine Glucose (UA) (Negative) mg/dL Urine Ketones (Negative) mg/dL Urine Blood (Negative) Urine Nitrite (Negative) Urine Bilirubin (Negative) Urine Urobilinogen (<2.0) mg/dL Ur Leukocyte Esterase (Negative) Urine WBC (Auto) (0.0-6.0) /HPF Urine RBC (Auto) (0.0-6.0) /HPF U Epithel Cells (Auto) (0-13.0) /HPF Urine Mucus /HPF 12/25/20 Range/Units 13:25 WBC (4.5-11.0) K/mm3 RBC (3.65-5.03) M/mm3 Hgb (10.1-14.3) gm/dl Hct (30.3-42.9) % MCV (79-97) fl MCH (28-32) pg MCHC (30-34) % RDW (13.2-15.2) % Plt Count (140-440) K/mm3 PT (12.2-14.9) Sec. INR (0.87-1.13) Sodium (137-145) mmol/L Potassium (3.6-5.0) mmol/L Chloride (98-107) mmol/L Carbon Dioxide (22-30) mmol/L Anion Gap mmol/L BUN (7-17) mg/dL Creatinine (0.6-1.2) mg/dL Estimated GFR ml/min BUN/Creatinine Ratio % Glucose (65-100) mg/dL Calcium (8.4-10.2) mg/dL Magnesium (1.7-2.3) mg/dL Total Bilirubin (0.1-1.2) mg/dL AST (5-40) units/L ALT (7-56) units/L Alkaline Phosphatase (35-129) units/L Total Creatine Kinase (30-135) units/L Total Protein (6.3-8.2) g/dL Albumin (3.9-5) g/dL Albumin/Globulin Ratio % Urine Color Yellow (Yellow) Urine Turbidity Cloudy (Clear) Urine pH 8.0 H (5.0-7.0) Ur Specific [place] 1.008 (1.003-1.030) Urine Protein >500 (Negative) mg/dL Urine Glucose (UA) Neg (Negative) mg/dL Urine Ketones Neg (Negative) mg/dL Urine Blood Lg (Negative) Urine Nitrite Neg (Negative) Urine Bilirubin Neg (Negative) Urine Urobilinogen < 2.0 (<2.0) mg/dL Ur Leukocyte Esterase Mod (Negative) Urine WBC (Auto) 23.0 H (0.0-6.0) /HPF Urine RBC (Auto) > 182.0 (0.0-6.0) /HPF U Epithel Cells (Auto) 1.0 (0-13.0) /HPF Urine Mucus Few /HPF - EKG Data 12/25/20 13:11 Sinus rhythm, 92 bpm. Left axis deviation, left anterior fascicular block. QTC prolonged. First-degree AV block. Abnormal EKG. Not a STEMI. Unchanged from prior EKG from March 2020 - Radiology Data Radiology results: pending, report reviewed, image reviewed CHEST 1 VIEW 1345 INDICATION / CLINICAL INFORMATION: cough weak, n/v COMPARISON: 04/03/2020 FINDINGS: SUPPORT DEVICES: None HEART / MEDIASTINUM: No significant abnormality. LUNGS / PLEURA: Mild chronic changes are again seen. Scarring is again noted in the left base. No definite acute infiltrates are noted. No pneumothorax. ADDITIONAL FINDINGS: No significant additional find ings. IMPRESSION: No significant acute abnormality Signer Name: Payam Frey MD Signed: 12/25/2020 12:55 PM Workstation Name: [id number] Critical care attestation.: If time is entered above; I have spent that time in minutes in the direct care of this critically ill patient, excluding procedure time. ED Disposition Clinical Impression: Left lower quadrant abdominal pain, Pyuria, Hypertension, Medication refill Disposition: DC-01 TO HOME OR SELFCARE Is pt being admited?: No Does the pt Need Aspirin: No Condition: Good Instructions: Hypertension (ED) Additional Instructions: Do not take Metformin medication for the next 2 days, if patient takes this medication. Take the antibiotics, nausea medication as needed and directed. Use the Phenergan suppository only if patient develops intractable nausea and vomiting, not relieved by the Reglan medication, ant tablets. Do not consume alcohol, and avoid Motrin, ibuprofen, Naprosyn, Aleve, heavy and spicy foods. Cultures were sent today, and results available in the next 3 to 5 days. Please have your primary care doctor contact the medical records department to obtain culture results. Please take the blood pressure medication as directed. Patient was found to have elevated blood pressure today. Long-term complications of hypertension elevated blood pressure include stroke, heart attack, disability, paralysis, loss of quality of life. Please return to the emergency room right away with new pain, worsening pain, migration of pain, projectile vomiting, change in mental status, confusion, inability to tolerate liquid feeds, new, worsened or different symptoms not present on the initial emergency room evaluation. We recommend follow-up with your primary care doctor within the next 3 to 5 days for repeat evaluation. Please have your primary care doctor contact medical records department to obtain copies of laboratory studies, urinalysis, CT scan, and a diagnostic evaluation that was performed here in the emergency room to follow-up on nonemergent incidental abnormal findings. Referrals: RACHELLE WASHINGTON [Other] - 3-5 Days
[2020-12-25 13:17] LABS: Hemoglobin 9.5 gm/dl (10.1-14.3)
[2020-12-25 13:27] LABS: Hematocrit 29.2 % (30.3-42.9); Mean Corpuscular HGB Conc 33 % (30-34); Mean Corpuscular Volume 91 fl (79-97); Red Cell Distribution Width 16.1 % (13.2-15.2)
[2020-12-25 13:34] LABS: INR 1.01 (0.87-1.13)
[2020-12-25 13:40] LABS: Platelet Count 340 K/mm3 (140-440)
[2020-12-25 13:46] LABS: Bilirubin,Urine NEG (Negative); Blood,Urine LG (Negative); Color,Urine Yellow (Yellow); Mucus,Urine FEW /HPF; Urobilinogen,Urine < 2.0 mg/dL (<2.0)
[2020-12-25 13:47] LABS: Protein,Urine >500 mg/dL (Negative); RBC,Urine > 182.0 /HPF (0.0-6.0)
--- NOTE | 2020-12-25 14:00 | XRay Report ---
CHEST 1 VIEW 1345 INDICATION / CLINICAL INFORMATION: cough weak, n/v COMPARISON: 04/03/2020 FINDINGS: SUPPORT DEVICES: None HEART / MEDIASTINUM: No significant abnormality. LUNGS / PLEURA: Mild chronic changes are again seen. Scarring is again noted in the left base. No def inite acute infiltrates are noted. No pneumothorax. ADDITIONAL FINDINGS: No significant additional findings. IMPRESSION: No significant acute abnormality Signer Name: Payam Frey MD Signed: 12/25/2020 1:55 PM Workstation Name: [id number]
[2020-12-25 14:52] LABS: Alanine Aminotransferase 6 units/L (7-56); Albumin 3.4 g/dL (3.9-5); Blood Urea Nitrogen 7 mg/dL (7-17); Calcium 8.4 mg/dL (8.4-10.2); Hemolysis Index 113
[2020-12-25 14:56] LABS: BUN/Creatinine Ratio 10
--- NOTE | 2020-12-25 15:54 | Cat Scan Report ---
CT ABDOMEN AND PELVIS WITH CONTRAST HISTORY: MAIN COMPARISON: None. TECHNIQUE: Axial CT images were obtained through the abdomen and pelvis after 100 cc of IV contrast. Sagittal and coronal reformatted images. All CT scans at this location are performed using CT dose re duction for ALARA by means of automated exposure control. FINDINGS: CT ABDOMEN: Lung Bases: Clear. Liver: No significant abnormality. Biliary: No significant abnormality. Spleen: No significant abnormality. Unenlarged. Pancreas: No significant abnormality. Adrenals: No significant abnormality. Kidneys: No significant abnormality. Lymphatics: No lymphadenopathy. Vasculature: No significant abnormality. Bowel/Peritoneum: No significant abnormality. No free air. No free fluid. Normal appendix. CT PELVIS: : Hysterectomy changes. There is a small amount of gas in the bladder which could be secondary to i nstrumentation. No bladder wall abnormality is appreciated. Osseous Structures: No significant abnormality. Additional Findings: None IMPRESSION: No acute process is appreciated. No clear explanation for left lower quadrant abdominal pain. Signer Name: Genaro Dietz Jr, MD Signed: 12/25/2020 3:50 PM Workstation Name: [id number]
[2020-12-25] MEDS ORDERED: NITROFURANTOIN MONOHYD/M-CRYST 100 MG CAP PO ONE (16:42)
[2020-12-25] MEDS ORDERED: oxyCODONE /ACETAMINOPHEN 5-325MG TAB PO ONE (16:42)
[2020-12-25] MEDS ORDERED: METOPROLOL TARTRATE 50 MG TAB PO ONE ×2 (16:43→16:52)
[2020-12-25] MEDS ORDERED: LISINOPRIL 20 MG TAB PO ONE (16:44)
[2020-12-25 17:40] VITALS: BP 159/101
== END 2020-12-25 18:56 | disposition home or self-care (01) ==
LOC: ED 11:42
DX: R82.81 Pyuria (principal); R10.32 Left lower quadrant pain; I10 Essential (primary) hypertension; Z76.0 Encounter for issue of repeat prescription; E11.9 Type 2 diabetes mellitus without complications; M19.91 Primary osteoarthritis, unspecified site; Z86.73 Personal history of transient ischemic attack (TIA), and cerebral infarction without residual deficits; Z90.49 Acquired absence of other specified parts of digestive tract; Z98.890 Other specified postprocedural states; Z79.899 Other long term (current) drug therapy
CPT/HCPCS: 36415; 36556; 71045; 74177; 80053; 81001; 82550; 83735; 85027; 85610; 87086; 93005; 96361; 96374; 99285; J2405; J7120; Q9967